=== PATIENT | male | born 1995 | race Caucasian/White ===

== ENCOUNTER 2025-09-07 22:31 | Emergency (ER) | payer OTHER ==
[~2025-09-07] VITALS: Ht 193 cm; Wt 71.7 kg
[2025-09-07 22:31] VITALS: BP 151/105
[2025-09-07] MEDS ORDERED: FentaNYL Citrate 50 MCG/ML 2 ML Injection IV PRN (22:45)
[2025-09-07] MEDS ORDERED: Ondansetron HCl 2 MG / ML 2ML Vial IV ONE (22:45)
[2025-09-07 22:52] LABS: BASOPHILS ABSOLUTE AUTO 0.06 K/mm3 (0.00-0.23); BASOPHILS PERCENT AUTO 1 % (0-2); EOSINOPHILS ABSOLUTE AUTO 0.27 K/mm3 (0.00-0.68); EOSINOPHILS PERCENT AUTO 2 % (0-6); Hematocrit 44.5 % (37.0-53.0); Hemoglobin 15.0 g/dL (13.5-17.5); IMMATURE GRAN ABSOLUTE AUTO 0.23 K/mm3 (0.00-0.10); IMMATURE GRAN PERCENT AUTO 2 % (0-1); LYMPHOCYTES ABSOLUTE AUTO 3.90 K/mm3 (0.84-5.20); LYMPHOCYTES PERCENT AUTO 35 % (21-46); MONOCYTES ABSOLUTE AUTO 0.51 K/mm3 (0.16-1.47); MONOCYTES PERCENT AUTO 5 % (4-13); Mean Corpuscular HGB Conc 33.7 g/dL (31.5-36.5); Mean Corpuscular Volume 98 fL (80-100); NEUTROPHILS ABSOLUTE AUTO 6.27 K/mm3 (1.96-9.15); NEUTROPHILS PERCENT AUTO 56 % (41-73); NRBC ABSOLUTE 0.00 K/mm3 (0.00-0.02); NRBC Auto 0.0 /100 WBC (0.0-0.2); Platelet Count 253 K/mm3 (150-400); RDW Coefficient Variation 12.0 % (11.7-14.2); RDW Standard Deviation 43.5 fL (35.1-46.3)
[2025-09-07 23:20] LABS: Ethanol (Alcohol), Blood, Med 189 mg/dL; Salicylate 2.3 mg/dL (2.8-20.0); Thyroid Stimulating Hormone 6.110 uIU/mL (0.360-4.800)
[2025-09-07 23:38] LABS: Alanine Aminotransfer (ALT/SGP 64 U/L (12-78); Albumin, Blood 4.3 g/dL (3.4-5.0); Albumin/Globulin Ratio 1.3 (0.8-1.8); Anion Gap 10 mmol/L (3-11); Aspartate Aminotrans (AST/SGOT 79 U/L (12-37); Bilirubin, Total 0.4 mg/dL (0.1-1.0); Blood Urea Nitrogen 17 mg/dL (8-24); CO2, Blood 23 mmol/L (21-32); Calcium, Blood 8.7 mg/dL (8.5-10.1); Chloride, Blood 111 mmol/L (98-108); Creatinine, Blood 0.77 mg/dL (0.60-1.20); Globulin, Blood 3.2 g/dL (2.2-4.0); Glucose, Blood 97 mg/dL (70-99); Potassium, Blood 4.0 mmol/L (3.5-5.5); Sodium, Blood 140 mmol/L (136-145); Total Protein, Blood 7.5 g/dL (6.4-8.2)
[2025-09-07 23:39] LABS: Acetaminophen, Random <2.0 ug/mL (10.0-30.0)
[2025-09-07] MEDS ORDERED: HYDROmorphone HCl/Pf 1MG SYR IV ONE (23:40)
[2025-09-08] MEDS ORDERED: NS 1,000 ML IV SCH (00:30)
[2025-09-08] MEDS ORDERED: HYDROmorphone HCl/Pf 1MG SYR IV PRN (00:30)
== END 2025-09-08 01:15 | disposition short-term general hospital (02) ==
LOC: ER 22:31
PROVIDERS: Emergency Medicine
DX: S02.19XA Other fracture of base of skull, initial encounter for closed fracture (principal); S02.32XA Fracture of orbital floor, left side, initial encounter for closed fracture; S32.592A Other specified fracture of left pubis, initial encounter for closed fracture; S32.402A Unspecified fracture of left acetabulum, initial encounter for closed fracture; S32.19XA Other fracture of sacrum, initial encounter for closed fracture; S22.41XA Multiple fractures of ribs, right side, initial encounter for closed fracture; S06.0X9A Concussion with loss of consciousness of unspecified duration, initial encounter; F10.929 Alcohol use, unspecified with intoxication, unspecified; Z88.1 Allergy status to other antibiotic agents; Z59.89 Other problems related to housing and economic circumstances; V47.5XXA Car driver injured in collision with fixed or stationary object in traffic accident, initial encounter
CPT/HCPCS: 70450; 70486; 71260; 72125; 74177; 80053; 80320; 82140; 84443; 85025; 90715; 93005; 93010; G0480; J1171; J2405; J3010; J7030; Q9967